=== PATIENT | female | born 1945 | race Caucasian/White ===

== ENCOUNTER 2020-09-20 18:29 | Emergency (ER) | payer MEDICARE ==
[2020-09-20] MEDS ORDERED: Lidocaine 1% w/Epinephrine 1:100K 20 ML VIAL ONE (19:11)
[2020-09-20] MEDS ORDERED: Boostrix 0.5 ML (Tdap) VIAL ONE (20:22)
== END 2020-09-20 20:24 | disposition home or self-care (01) ==
LOC: CSHERS 18:29
DX: S01.01XA Laceration without foreign body of scalp, initial encounter (principal); I12.9 Hypertensive chronic kidney disease with stage 1 through stage 4 chronic kidney disease, or unspecified chronic kidney disease; E78.5 Hyperlipidemia, unspecified; N18.9 Chronic kidney disease, unspecified; Z87.891 Personal history of nicotine dependence; Z79.82 Long term (current) use of aspirin; Z79.899 Other long term (current) drug therapy; Z23 Encounter for immunization; W10.9XXA Fall (on) (from) unspecified stairs and steps, initial encounter
CPT/HCPCS: 12002; 70450; 90471; 90715